=== PATIENT | female | born 1930 | race Caucasian/White ===

== ENCOUNTER 2018-11-13 07:56 | Inpatient (IN) ==
[2018-11-13 08:47] LABS: BASO# 0.05 X1000 (0.0-0.2); BASO% 0.3 % (0.0-0.8); EOS% 0.7 % (0.0-10.0); HEMATOCRIT 32.4 % (37.0-47.0); HEMOGLOBIN 11.1 g/dL (12.0-16.0); IMM GRAN# 0.16 X1000 (0.0-0.04); IMM GRAN% 1.1 % (0.0-0.5); LYMPH% 11.6 % (20.5-51.1); MCH 32.6 PG (27-31); MCHC 34.3 g/dL (33-37); MCV 95.3 FL (81-99); MONO# 0.79 X1000 (0.11-0.59); MONO% 5.4 % (1.7-9.3); MPV 8.8 FL (7.4-10.4); NEUT% 80.9 % (42.2-75.2); PLT 286 X1000 (130-400); RDW 14.8 % (11.5-14.5)
[2018-11-13 09:02] LABS: INR 1.17; PROTIME 15.5 Seconds (11.0-16.0)
[2018-11-13 09:03] LABS: PTT 29.6 Seconds (22.3-41.8)
[2018-11-13 09:08] LABS: ALBUMIN 4.3 g/dL (3.5-5.0); CALCIUM 9.1 mg/dL (8.8-10.2); CREATININE 1.2 mg/dL (0.5-0.9); POTASSIUM 4.5 mmol/L (3.5-5.1); TOTAL BILIRUBIN 0.4 mg/dL (0.20-1.00); TOTAL PROTEIN 6.7 g/dL (6.3-8.3)
--- NOTE | 2018-11-13 09:13 | Diag Imaging Result Doc PS360 ---
EXAM: CHEST-1 VIEW HISTORY: sespis protocol TECHNIQUE: PA and Lateral chest x-ray COMPARISON: 11/11/2018 FINDINGS: The cardiomediastinal silhouette is within normal limits. There is increasing vascular congestion and interstitial edema. Increasing bilateral pleural effusions. Stable scoliosis and bilateral shoulder arthroplasties. IMPRESSION: Increasing vascular congestion, interstitial edema, small effusions. Electronically signed by Maya Grfa 11/13/2018 9:10 AM
[2018-11-13 09:17] LABS: BILIRUBIN URINE NEGATIVE (NEGATIVE); BLOOD URINE NEGATIVE (NEGATIVE); CLARITY CLEAR (CLEAR); COLOR YELLOW; GLUCOSE URINE NEGATIVE (NEGATIVE); KETONE URINE NEGATIVE (NEGATIVE); LEUKOCYTES URINE NEGATIVE (NEGATIVE); NITRITE URINE NEGATIVE (NEGATIVE); PROTEIN URINE NEGATIVE (NEGATIVE); UROBILINOGEN URINE NORMAL
[2018-11-13 09:18] LABS: URINE SOURCE CLEAN CATCH; URINE WBC <10 /HPF (<10)
[2018-11-13] MEDS ORDERED: LASIX IV ONE (09:36)
[2018-11-13] MEDS ORDERED: ALBUTEROL NEB INH ONE (09:38)
--- NOTE | 2018-11-13 10:20 | EKG Report ---
Test Performed on : 11/13/2018 08:53:20 AM Test Reason : sespis protocol/weakness Blood Pressure : / mmHG Vent. Rate : 083 BPM Atrial Rate : 076 BPM P-R Int : 000 ms QRS Dur : 084 ms QT Int : 348 ms P-R-T Axes : 000 008 001 degrees QTc Int : 408 ms Atrial fibrillation. Septal infarct , age undetermined Abnormal ECG No previous ECGs available Unconfirmed Result
--- NOTE | 2018-11-13 10:51 | PROVIDER DOCUMENTATION ---
This chart was entered by Mame Padilla Scribe, acting as scribe for Woody Headley MD. HPI-General Adult - General Chief Complaint: Weakness Stated Complaint: RETURN/RECHECK Time Seen by Provider: 11/13/18 08:57 Source: patient Allergies/Adverse Reactions: Patient Allergies Allergy/AdvReac Type Severity Reaction Status Date / Time diphenhydramine HCl * Allergy Unknown Verified 11/13/18 09:09 [From Benadryl] midazolam HCl * [From Versed] Allergy ANAPHYLAXIS Verified 11/13/18 09:09 Penicillins Allergy ANAPHYLAXIS Verified 11/13/18 09:09 promethazine HCl * Allergy ANAPHYLAXIS Verified 11/13/18 09:09 [From Phenergan] Home Medications: Home Medication List Medication Instructions Recorded Confirmed Last Taken Type Fenofibrate 160 mg PO HS 05/29/14 11/13/18 02/10/18 17:30 History Lisinopril 20 mg PO QHS 05/29/14 11/13/18 02/09/18 History Omeprazole 40 mg PO DAILY 05/29/14 11/13/18 02/11/18 04:30 History Lorazepam 1 mg PO TID PRN #30 tablet 07/03/15 11/13/18 02/11/18 04:30 Rx Diltiazem HCl [Cardizem] 120 mg PO DAILY 10/09/16 11/13/18 02/11/18 04:30 History Fluticasone 50 Mcg Nasal [place] 2 puff INH QHS PRN 10/09/16 11/13/18 02/11/18 04:30 History [Flonase] Polyethylene Glycol 3350 [Miralax] 17 gm PO DAILY PRN 10/09/16 11/13/18 02/10/18 17:30 History Furosemide [Lasix] 40 mg PO DAILY 04/16/17 11/13/18 02/10/18 14:00 History LOVAstatin [Mevacor] 10 mg PO WSUPPER 02/05/18 11/13/18 02/10/18 History Ondansetron HCl [Zofran] 4 mg PO PRN PRN 02/05/18 11/13/18 Unknown History Potassium Chloride [Klor-Con 10] 10 meq PO DAILY 02/05/18 11/13/18 02/11/18 04:30 History Albuterol 2.5MG/Ipratrop 0.5MG 3 ml INH Q4H PRN PRN #40 neb 11/11/18 11/13/18 Unknown Rx [Duoneb] Clindamycin [Cleocin] 300 mg PO Q6HR #20 cap 11/11/18 11/13/18 Unknown Rx Prednisone 10 mg PO DIRECTED #9 tab 11/11/18 11/13/18 Unknown Rx Apixaban [Eliquis] 2.5 mg PO DAILY 11/13/18 11/13/18 Unknown History Aspirin 81 mg PO DAILY 11/13/18 11/13/18 Unknown History Oxycodone I.r. [Oxy Ir] 5 mg PO Q8H PRN PRN 11/13/18 11/13/18 Unknown History - History of Present Illness -Gen Adult Nature of Presenting Problems: 88 y/o female presents to ED with worsening productive cough, congestion, and SOB onset 2 days ago. Pt reports she has been seen in ED twice for same and is currently on antibiotics. Pt is alert and oriented. Location of Pain/Injury: reports: none Pain Radiation: reports: no radiation Quality of Pain: reports: none Severity: reports: mild Onset/Duration: reports: 2 days ago Timing: reports: still present Context/Activities at Onset: reports: none Modifying Factors: improves with: nothing Associated Symptoms: reports: cough (productive), sinus congestion/drainage, shortness of breath Similar Symptoms Previously?: Yes Recently seen or treated by another doctor?: Yes Review of Systems - Adult - REVIEW OF SYSTEMS - ADULT Constitutional: denies: chills, fever Eyes: reports: no symptoms reported Ears, Nose, Mouth & Throat: reports: sinus problem. denies: epistaxis Cardiovascular: denies: chest pain, palpitations Respiratory: reports: cough (productive), shortness of breath Gastrointestinal: denies: abdominal pain, diarrhea, nausea, vomiting Genitourinary: reports: no symptoms reported Musculoskeletal: denies: back pain, joint pain Integumentary: reports: no symptoms reported Neurological: denies: dizziness/vertigo, seizure Psychiatric: reports: no symptoms reported Endocrine: reports: no symptoms reported Hematologic/Lymphatic: reports: no symptoms reported Allergic/Immunologic: reports: no symptoms reported All Other Systems: Reviewed and Negative Past History - Adult - PAST MEDICAL HISTORY-ADULT Review of Records: reports: Old Records Reviewed, Nursing Assessment Review, M edications Reviewed Major Childhood Illnesses: reports: denies history Cardiovascular: reports: A-Fib, CHF, HTN, hyperlipidemia, ID Respiratory: reports: asthma, COPD Gastrointestinal: reports: GERD Obstetrical/Gynecological: reports: denies history Genitourinary: reports: denies history Musculoskeletal: reports: arthritis, chronic pain (pain pump), intervertebral disc disease Neurological: reports: denies history Psychiatric: reports: anxiety, other (panic attacks) Endocrine/Immune: reports: denies history Other Conditions: reports: denies history - PRIOR SURGERIES/PROCEDURES Surgical/Procedure History: reports: cholecystectomy, hysterectomy, orthopedic (extremity) (left shoulder replacement 09/2015), back/neck (back sx), other (nose sx, pain pump for chronic low back pain; bladder tack) - PRIOR HOSPITALIZATIONS Prior Hospitalizations: reports: for other non-related - IMMUNIZATION STATUS Childhood Immunizations: See Nurse Assessment Flu Vaccine: See Nurse Assessment - FAMILY HISTORY Family History: reviewed, not pertinent - SOCIAL HISTORY Smoking: non-smoker Substance Use: none/never Alcohol Use Frequency: never Living Situation: family Physical Exam-General - PHYSICAL EXAM-ADULT Initial Vital Signs Reviewed: Yes - CONSTITUTIONAL General Appearance: appears well, alert, no apparent distress - EYES Eyes: PERRL/EOMI, pink conjunctivae - HEAD, EARS, NOSE, MOUTH & THROAT HENMT: normocephalic/atraumatic, moist mucous membranes, normal ENT inspection - NECK Neck: non-tender, full range of motion - RESPIRATORY Respiratory: chest non-tender, rhonchi, increased rate - CARDIOVASCULAR Cardiovascular: tachycardia - GASTROINTESTINAL (ABDOMEN) Abdominal Exam: normal bowel sounds, non tender, soft - MUSCULOSKELETAL Back Exam: no CVA tenderness, no vertebral tenderness, kyphosis Extremity: normal range of motion, non-tender, swelling (chronic pitting edema of bilateral lower extremities), other (venous stasis dermatitis; bilateral low er extremities warm to touch) - SKIN Integumentary: normal color, warm/dry - NEUROLOGIC Neurologic: grossly normal - PSYCHIATRIC Psych/Mental Status: normal mood/affect, normal thought content, normal thought process, oriented x 3 Progress - PLAN OF CARE/RESULTS Progress/Plan/Lab Results: Vital Signs - 8 hr 11/13/18 08:03 Temperature 99.1 F Pulse Rate 99 H Respiratory Rate 24 Blood Pressure 177/083 O2 Sat by Pulse Oximetry 94 L Laboratory Results - last 24 hr 11/13/18 11/13/18 11/13/18 08:20 08:20 08:20 WBC 14.70 H RBC 3.40 L Hgb 11.1 L Hct 32.4 L MCV 95.3 MCH 32.6 H MCHC 34.3 RDW Std Deviation 14.8 H Plt Count 286 MPV 8.8 Immature Gran % (Auto) 1.1 H Neut % (Auto) 80.9 H Lymph % (Auto) 11.6 L [place] % (Auto) 5.4 Eos % (Auto) 0.7 Baso % (Auto) 0.3 Immature Gran # (Auto) 0.16 H Neut # (Auto) 11.90 H Lymph # (Auto) 1.70 [place] # (Auto) 0.79 H Eos # (Auto) 0.10 Baso # (Auto) 0.05 PT 15.5 INR 1.17 PTT (Actin FS) 29.6 Sodium 132 L Potassium 4.5 Chloride 99 Carbon Dioxide 22 L Anion Gap 11 BUN 24 H Creatinine 1.2 H Estimated GFR/1.73 m2 42 BUN/Creatinine Ratio 20 Glucose 92 Calculated Osmolality 268 Calcium 9.1 Total Bilirubin 0.40 AST 21 ALT 13 Alkaline Phosphatase 46 Creatine Kinase 64 Troponin T Total Protein 6.7 Albumin 4.3 Globulin 2.0 Albumin/Globulin Ratio 2.0 Plasma Lactate 11/13/18 11/13/18 08:20 08:20 WBC RBC Hgb Hct MCV MCH MCHC RDW Std Deviation Plt Count MPV Immature Gran % (Auto) Neut % (Auto) Lymph % (Auto) [place] % (Auto) Eos % (Auto) Baso % (Auto) Immature Gran # (Auto) Neut # (Auto) Lymph # (Auto) [place] # (Auto) Eos # (Auto) Baso # (Auto) PT INR PTT (Actin FS) Sodium Potassium Chloride Carbon Dioxide Anion Gap BUN Creatinine Estimated GFR/1.73 m2 BUN/Creatinine Ratio Glucose Calculated Osmolality Calcium Total Bilirubin AST ALT Alkaline Phosphatase Creatine Kinase Troponin T < 0.010 Total Protein Albumin Globulin Albumin/Globulin Ratio Plasma Lactate 1.4 Orders Category Date Time Status Cardiac Monitoring DIRECTED Care 11/13/18 08:11 Active IV Insertion ORDERED Care 11/13/18 08:11 Completed Notify MD of + Sepsis Screen NOW Care 11/13/18 08:11 Active CHEST-1 VIEW [RAD] Stat Exams 11/13/18 08:11 Completed BLOOD CULTURE [BLDCUL] Stat Lab 11/13/18 08:20 Ordered CBC WITH DIFF [HEME] Stat Lab 11/13/18 08:20 Completed CK PROFILE [SP CHEM] Stat Lab 11/13/18 08:20 Completed COMPREHENSIVE METABOLIC PANEL [CHEM] Stat Lab 11/13/18 08:20 Completed LACTATE, PLASMA [CHEM] Lab 11/13/18 08:20 Completed LACTATE, PLASMA [CHEM] Lab 11/13/18 11:15 Uncollected LACTATE, PLASMA [CHEM] Lab 11/13/18 14:15 Uncollected PROTIME WITH INR [COAG] Stat Lab 11/13/18 08:20 Completed PTT [COAG] Stat Lab 11/13/18 08:20 Completed TROPONIN T Stat Lab 11/13/18 08:[address] W/POSS RFLX CULT [URINALYSIS] Stat Lab 11/13/18 08:20 Received Oxygen Device Stat Oth 11/13/18 08:11 Active EKG [EKG] Stat Ther 11/13/18 08:14 Ordered Result Diagrams: 11/13/18 08:20 11/13/18 08:20 - EKG 1 Time of EKG reading by physician:: 08:53 EKG Read and Signed by:: Woody Headley EKG Interpretation (*Must complete 3 of following elements*): Abnormal Rate: 83 Rhythm: Afib [place]: normal QRS: other (septal infarct) RI Interval: normal ST Wave: normal - XRAY 1 XRAY Study: Chest Impression: Abnormal ([facility] [address], [address], [place] [address] Department of Imaging Patient: JUNIE GILLILAND OADM Date: 11/13/18#: [id number] : 1930DM Status: REG [facility]#: [id number] Age/Sex: 88/FRoom/Bed: Loc: P.ED Ordering Physician: Woody Headley MD Family Physician: Christiana Maria MD Reason for Procedure: sespis protocol Signed EXAM: CHEST-1 VIEW HISTORY: sespis protocol TECHNIQUE: PA and Lateral chest x-ray COMPARISON: 11/11/2018 FINDINGS: The cardiomediastinal silhouette is within normal limits. There is increasing vascular congestion and interstitial edema. Increasing bilateral pleural effusions. Stable scoliosis and bilateral shoulder arthroplasties. IMPRESSION: Increasing vascular congestion, interstitial edema, small effusions. Electronically signed by Maya Graf 11/13/2018 9:10 AM 11/13/18 0910 Interpreting Physician: Maya Graf MD Dictated Date/Time: 11/13/18 0908 cc: Woody Headley MD; Christiana Maria MD) - CONSULTS/PCP/HOSPITALIST Notification #1 *Consult/PCP/Hospitalist*: Dr. Pink Time Discussed: 10:51 Reason/Comments: Heart failure and COPD Consult Disposition: Admit Departure - Departure Date of Disposition Decision: 11/13/18 Time of Disposition Decision: 10:06 DIAGNOSIS: COPD (chronic obstructive pulmonary disease) Qualifiers: COPD type: unspecified COPD Qualified Code(s): J44.9 - Chronic obstructive pulmonary disease, unspecified Heart failure Qualifiers: Heart failure type: unspecified Heart failure chronicity: unspecified Qualified Code(s): I50.9 - Heart failure, unspecified Disposition: ADMITTED INPATIENT 09 Certified Medical Emergency: Emergent Condition: Stable Referrals and Follow-Ups: Christiana Maria MD [Primary Care Provider] - - Critical Care Note This patient required my direct & personal management of CC.: No Attestation - Physician/ MELLY Attestation Patient care was provided by Advanced Practice Provider:: No The physician spent face to face time with patient:: Yes Advanced Practice Provider documentation review:: Supervising physician onsite and consulted in the evaluation and care of this patient. The physician did have a face to face encounter with the patient. This chart was documented by the indicated scribe, (Valerie,Mame F, Scribe) and accurately reflects the services I performed and decisions made by me, Woody Headley MD, as attested by the provider's signature.
[2018-11-13] MEDS ORDERED: DUONEB (A & A) INH PRN (12:15)
[2018-11-13] MEDS ORDERED: FLONASE NAS PRN (12:15)
--- NOTE | 2018-11-13 13:30 | HISTORY AND PHYSICAL ---
PRIMARY CARE PHYSICIAN: Dr. Maria CHIEF COMPLAINT: Shortness of breath with productive cough. HISTORY OF PRESENT ILLNESS: Ms. Hawa Watson is an 88-year-old female with a medical history of chronic atrial fibrillation on Eliquis and Cardizem, congestive heart failure on Lasix with chronic lower extremity edema, also with chronic lower back pain with pain pump including morphine in it. She states that at least since Friday, where she presented on her on Friday, with antibiotics, nebulizers and prednisone, at that time they wanted to admit her, but she just did not want to stay, so they sent her home. This morning she woke up much more congested, started having productive cough with a very small amount of thick yellow phlegm, a little bit of dizziness and shortness of breath with it, much more weak, so is back. The x-ray is showing more of a pulmonary edema, congestive heart failure type of situation. Her ProBNP is elevated, but with the 99.1 temperature when she got here, the productive yellow phlegm, there could be an underlying pneumonia as well. According to the daughter who is at the bedside, she has never actually had a congestive heart failure exacerbation. In reviewing her ProBNP history, this is the highest it has been at 6574. Prior to that, the highest was 2550. So we will send her for a CT of the chest to evaluate if there is some underlying pneumonia as well. She does have an elevated white blood cell count but could be inflammatory and also a result of having steroids. She is tolerating 2 L of nasal cannula at this time. PAST MEDICAL HISTORY: 1. Atrial fibrillation on Eliquis and Cardizem. 2. Systolic congestive heart failure with chronic lower extremity edema on Lasix. 3. Hypertension. 4. Hyperlipidemia. 5. Coronary artery disease with myocardial infarction around 3 or 4 years ago. No intervention on that. 6. 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 Denies ever having any back surgeries or neck surgeries, though. 7. Chronic arthritis. 8. Pulmonary emboli in 2013. 9. 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 10.GERD. PAST SURGICAL HISTORY: 1. Cholecystectomy. 2. Hysterectomy. 3. Left shoulder replacement in 2015. 4. Right shoulder replacement in 2018. 5. Bilateral cataracts. 6. Pain pump with morphine placed. SOCIAL HISTORY: Denies tobacco, alcohol or illicit drug use. She uses a walker to get around. She lives at home with her daughter. FAMILY HISTORY: Mother had stroke and high blood pressure. Father had diabetes type 2 and myocardial infarction. ALLERGIES: Versed causes agitation. Penicillin causes hives and swelling. Benadryl causes agitation. Phenergan causes agitation. HOME MEDICATIONS: 1. Fluticasone 2 puffs inhaled nasally at night. 2. Lisinopril 20 mg p.o. nightly. 3. Aspirin 81 mg p.o. daily. 4. Cardizem 120 mg p.o. daily. 5. Eliquis 2.5 mg p.o. daily. 6. Fenofibrate 160 mg p.o. nightly. 7. Potassium 10 mEq p.o. daily. 8. Lasix 40 mg p.o. daily. 9. Lovastatin 10 mg p.o. at night. 10.MiraLAX 17 g p.o. daily. 11.Omeprazole 40 mg p.o. daily. 12.Oxycodone IR 5 mg p.o. every 8 hours p.r.n. 13.Zofran 4 mg p.o. every 4 hours p.r.n. 14.Albuterol and Atrovent nebulizers every 4 hours. 15.Clindamycin 300 mg p.o. every 6 hours. 16.Ativan 1 mg p.o. t.i.d. p.r.n. 17.Prednisone Dosepak. REVIEW OF SYSTEMS: A 14-point review of systems is complete, and all were negative except for those mentioned in the above HPI. PHYSICAL EXAMINATION: VITAL SIGNS: Temperature is 98.6, heart rate 83, respiratory rate 22, blood pressure 164/69, O2 saturation 99% on 2 L nasal cannula. GENERAL: Ms. Hawa Watson is an 88-year-old female. She is in no acute distress. She is able to answer questions appropriately. HEENT: Atraumatic and normocephalic. Pupils are equal, round and reactive to light. Extraocular movements were intact. Mucous membranes are dry. NECK: Trachea midline. CARDIOVASCULAR: Irregularly irregular rate and rhythm, controlled rate and rhythm. No rubs, gallops or murmurs. She has 1+ lower extremity edema, plus 2 dorsalis and radial pulses. Negative JVD or carotid bruits. PULMONARY: Clear to auscultation. Coarse through the left side mostly. Decreased in the bases with some very fine crackles. Tolerating 2 L nasal cannula. No accessory muscle use or work of breathing noted. She does have a coarse cough. GASTROINTESTINAL: Soft, nontender and nondistended. Positive bowel sounds x4. EXTREMITIES: Moves all extremities equally, decreased range of motion. NEUROLOGICAL: Alert and oriented x3. Follows commands. Sensory is intact. SKIN: Warm, dry and intact. DIAGNOSTIC DATA: White blood cells are 14,000, hemoglobin 11, hematocrit 32, platelet count 286. INR is 1.17. PTT is 29.6. Sodium is 132, potassium 4.5, BUN is 24, creatinine 1.2, glucose 92, calcium 9.1, bilirubin 0.40, AST is 21, ALT is 13. CK is 64. Troponin less than 0.01. ProBNP is 6574. Albumin is 4.3. Serum lactate is 1.4. Urinalysis negative. IMAGING: Chest x-ray with increased vascular congestion, interstitial edema, small effusions. EKG with atrial fibrillation, rate of 83, QTC of 408. ASSESSMENT AND PLAN: 1. Acute on chronic systolic congestive heart failure. Last echocardiogram was 06/27/2015 that was performed here, and EF was 70% to 75%. It did have pulmonary pressure around 35 mmHg. We will get a new echocardiogram. She does have swelling in the lower extremities. She is going to be on Lasix IV q.12 hours. 2. Hypoxemic respiratory failure requiring 2 L nasal cannula. We will do nebulizers for her. 3. Leukocytosis. History of frequent UTIs with several different microbes, but she has a clear urinalysis right now. Likely, we are concerned that there is an underlying pneumonia, so we are getting a CT of the chest. She does have a little bit of a yellow phlegm that she started coughing up today, and we will get a culture of that. We will also start her on Levaquin. 4. Atrial fibrillation. Currently rate controlled. We will continue Cardizem, Eliquis and aspirin. 5. Hyperlipidemia. Continue statin and fenofibrate. 6. Gastroesophageal reflux disease. Continue with omeprazole. 7. Chronic pain syndrome. Has a morphine pain pump for her back and p.r.n. oxycodone. 8. Hypertension. Continue lisinopril. 9. History of pulmonary emboli in 2014 and bilateral DVTs in 2018. She is on Eliquis and aspirin. Dictated by YASH Rios for Junior Pink MD cc: YASH Rios MD
[2018-11-13] MEDS: LEVAQUIN 500 MG/D5W 500 MG/100 ML IVPB IV SCH (13:35)
[2018-11-13] MEDS: ATIVAN PO PRN ×2 (13:52→20:25)
[2018-11-13] MEDS: OXY IR PO PRN ×2 (13:52→22:02)
[2018-11-13] MEDS: ATROVENT NEB INH SCH ×2 (16:25→21:44)
[2018-11-13] MEDS: XOPENEX NEB INH SCH ×2 (16:27→21:44)
--- NOTE | 2018-11-13 16:56 | ECHO REPORT ---
ORDER DATE: 11/13/2018 INDICATION: Shortness of breath, CHF. FINDINGS: 1. The right atrium is severely enlarged. 2. There is mild, possibly moderate tricuspid regurgitation. RV systolic pressure of 53. 3. Normal RV size and systolic function. 4. No significant pulmonic insufficiency. 5. Severe left atrial enlargement with a volume index of 57. 6. No mitral valve prolapse. Mild mitral annular calcification. Mild mitral regurgitation noted. 7. Normal LV size, end-diastolic dimension of 3.8. Normal wall thicknesses with a posterior and interventricular septal wall thickness of 0.9 cm each. Hyperdynamic LV systolic function. The estimated ejection fraction is greater than 70%. Notably the heart rate appeared to be in the 120s to 130s for the majority of this study. It appears consistent with atrial fibrillation. Notably there was an increased left ventricular outflow tract gradient on Valsalva with a peak of 61 mmHg. No clear evidence of systolic anterior motion of the mitral leaflet was identified. 8. Aortic valve opens well. No clear evidence of stenosis or insufficiency. 9. Aorta appears normal in visualized segments. 10. No pericardial effusion identified. cc: MD Sangeetha De Santiago CRNP
--- NOTE | 2018-11-13 16:58 | Diag Imaging Result Doc PS360 ---
EXAM: CT THORAX W/CONTRAST HISTORY: pneumonia TECHNIQUE: Images were obtained from the lung apices through bases following IV contrast as per standard protocol. COMPARISON: None. FINDINGS: There is streak artifact from bilateral shoulder arthroplasties. There is atherosclerotic calcification within the aorta and coronary arteries. Mitral annulus calcification and dilatation of the left atrium. There are calcified hilar and mediastinal lymph nodes consistent prior granulomatous. There is no evidence for aortic aneurysm or dissection. There are bilateral pleural effusions right greater than left. There is peribronchial thickening and alveolar infiltrates at both lung bases right greater than left consistent with pneumonia and/or or atelectasis. There is linear atelectasis or scarring right middle lobe. Images of the abdomen reveal dense atherosclerotic calcified patient. There is right renal atrophy. There is a large, approximately 5 cm, left renal cyst. There are cholecystectomy clips. There is a spinal stimulator device. There is a severe scoliosis IMPRESSION: 1.Bibasilar alveolar infiltrates and effusions right greater than left consistent with pneumonia and/or atelectasis. 2.Marked scoliosis with spinal stimulator device. This exam was performed using automated exposure control, adjustment of mA or kV according to patient size, and/or use of iterative reconstruction technique. Electronically signed by Maya Graf 11/13/2018 4:55 PM
[2018-11-13] MEDS: MEVACOR PO SCH (17:05)
[2018-11-13] MEDS: CARDIZEM 125 MG/D5W 125 MG/125 ML IVPB IV SCH ×2 (17:45→19:50)
--- NOTE | 2018-11-13 18:29 | EKG Report ---
Test Performed on : 11/13/2018 5:12:32 PM Test Reason : afib Blood Pressure : / mmHG Vent. Rate : 135 BPM Atrial Rate : 122 BPM P-R Int : 000 ms QRS Dur : 082 ms QT Int : 308 ms P-R-T Axes : 000 006 -33 degrees QTc Int : 462 ms Atrial fibrillation. with rapid ventricular response. Septal infarct (cited on or before 25-SEP-2017) Abnormal ECG When compared with ECG of 13-NOV-2018 08:53, (Unconfirmed) Vent. rate has increased BY [address] now depressed in Inferior leads ST now depressed in Anterolateral leads Confirmed by Woody Headley MD ([id number]) on 11/19/2018 2:17:06 AM
[2018-11-13] MEDS ORDERED: OFIRMEV 1000 MG/ISOTONIC SOLN 1,000 MG/100 ML BOTTLE IV ONE (19:00)
[2018-11-13] MEDS: ELIQUIS PO SCH (20:25)
[2018-11-13] MEDS: TRICOR PO SCH (20:25)
[2018-11-13] MEDS: TYLENOL PO PRN (20:28)
--- NOTE | 2018-11-13 20:36 | PROGRESS NOTE ---
DATE: 11/13/2018 SUBJECTIVE: The patient has no major complaints. OBJECTIVE: Vital Signs: Blood pressure is 172/78, heart rate of 99, respiratory rate 22, temperature 98.7, 95% on 2 L. Exam: She has audible crackles and she is struggling to breathe. She clinically looks like she has heart failure. She was seen in the ER a couple of days ago and she was treated for bronchitis, pneumonia, but now I feel clinically she has heart failure. I do not have any cardiac testing to secure it one way or another. Her echo in 2014 was normal. ASSESSMENT: We will admit her for: 1. Congestive heart failure exacerbation. Continue diuretics. Get an echo and follow clinically. 2. Bronchitis with possible pneumonia. We will get a CT scan and get a procalcitonin level and follow closely. 3. She is discussing with her family about her code status. At this point she is a full code. cc: Junior Pink MD
[2018-11-13] MEDS ORDERED: PRINIVIL PO SCH (21:00)
[2018-11-13] MEDS: LASIX IV SCH (22:02)
[2018-11-14] MEDS: ATIVAN PO PRN ×3 (05:47→20:04)
[2018-11-14] MEDS: PRILOSEC PO SCH (06:11)
[2018-11-14 06:19] LABS: BASO# 0.05 X1000 (0.0-0.2); BASO% 0.6 % (0.0-0.8); EOS# 0.13 X1000 (0.0-0.7); EOS% 1.6 % (0.0-10.0); HEMOGLOBIN 11.3 g/dL (12.0-16.0); IMM GRAN# 0.13 X1000 (0.0-0.04); IMM GRAN% 1.6 % (0.0-0.5); LYMPH# 1.56 X1000 (1.2-3.4); LYMPH% 18.8 % (20.5-51.1); MCH 33.1 PG (27-31); MCHC 34.2 g/dL (33-37); MCV 96.8 FL (81-99); MONO# 0.76 X1000 (0.11-0.59); MONO% 9.2 % (1.7-9.3); MPV 8.7 FL (7.4-10.4); NEUT# 5.67 X1000 (1.4-6.5); NEUT% 68.2 % (42.2-75.2); PLT 234 X1000 (130-400); RBC 3.41 XMIL (4.2-5.4); RDW 15.1 % (11.5-14.5)
[2018-11-14 06:56] LABS: ALBUMIN 3.5 g/dL (3.5-5.0); CALCIUM 8.6 mg/dL (8.8-10.2); CREATININE 1.2 mg/dL (0.5-0.9); MAGNESIUM 1.8 mg/dL (1.5-2.7); POTASSIUM 4.2 mmol/L (3.5-5.1); TOTAL BILIRUBIN 0.5 mg/dL (0.20-1.00); TOTAL PROTEIN 6.3 g/dL (6.3-8.3)
[2018-11-14] MEDS: ELIQUIS PO SCH ×2 (08:11→20:04)
[2018-11-14] MEDS: ASPIRIN PO SCH (08:11)
[2018-11-14] MEDS ORDERED: CARDIZEM CD PO SCH (09:00)
[2018-11-14] MEDS ORDERED: ELIQUIS PO SCH (09:00)
[2018-11-14] MEDS: LASIX IV SCH ×2 (09:27→20:02)
[2018-11-14] MEDS: ATROVENT NEB INH SCH ×3 (09:41→21:04)
[2018-11-14] MEDS: XOPENEX NEB INH SCH ×3 (09:41→21:03)
[2018-11-14] MEDS: OXY IR PO PRN (11:01)
[2018-11-14] MEDS: LEVAQUIN 500 MG/D5W 500 MG/100 ML IVPB IV SCH (11:29)
[2018-11-14] MEDS ORDERED: MAGNESIUM SULFATE 1 GM/D5W 1 GM/100 ML IVPB IV ONE (12:55)
[2018-11-14] MEDS: CARDIZEM PO SCH ×2 (13:16→18:29)
[2018-11-14] MEDS: ZANAFLEX PO PRN ×2 (13:16→21:15)
[2018-11-14] MEDS: MEVACOR PO SCH (16:00)
--- NOTE | 2018-11-14 16:39 | PROGRESS NOTE ---
DATE: 11/14/2018 SUBJECTIVE: She is doing well. Breathing is much better. She does not have as much work of breathing. OBJECTIVE: Blood pressure is 102/52, heart rate 86, respiratory 17, temperature 98.8 degrees, 95% on 2 L.Cardiovascular: Regular rate and rhythm. Pulmonary: Bilateral breath sounds with rhonchi and rales at the bases. GI: Soft, nontender, nondistended. Bowel sounds are positive. LABORATORY DATA: Her white count is 8, hemoglobin and hematocrit 11, 33, platelets 234,000. Creatinine is 1.2, potassium 4.2, mag is 1.8. PROBLEM LIST: 1. Congestive heart failure exacerbation presumably diastolic. I think the heart failure is ejection fraction 70%. 2. Likely pneumonia lower lobe. We will continue empiric antibiotics. She is currently on Levaquin. 3. Atrial fibrillation with rapid ventricular response. She went into that yesterday evening requiring intravenous Cardizem which we did intravenous and she has slowed down but she is not cardioverted. She meets criteria for anticoagulation. She is 88, her creatinine is 1.2 so I am just going to do the 2.5. We will attempt to get a Cardiology consult, keep her potassium and magnesium above 4 and 2 respectively. 4. Gastroesophageal reflux disease. Will continue PPI and follow. DISPOSITION: The patient is stable. Reportedly she is on Eliquis already but she is only on 2.5 daily. I am going to continue that and we will follow. cc: Junior Pink MD
--- NOTE | 2018-11-14 19:29 | CONSULTATION ---
DATE OF CONSULTATION: 11/14/2018 IMPRESSION: 1. Dyspnea symptoms probably multifactorial related to acute on chronic congestive heart failure with preserved left ventricular ejection fraction and chronic pulmonary disease with exacerbation. 2. Chronic atrial fibrillation. 3. Chronic pulmonary disease. 4. Hypertensive cardiovascular disease. Echocardiography demonstrates relatively hyperdynamic left ventricle and moderate pulmonary hypertension. 5. Hyperlipidemia. 6. 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 Patient has chronic pain pump implanted. 7. History of deep vein thrombosis and pulmonary emboli. RECOMMENDATIONS: 1. Agree with efforts to diurese. 2. Continue Eliquis 2.5 mg p.o. b.i.d. as you are doing. 3. Conservative cardiovascular management overall. HISTORY: This 88-year-old white female with past history of chronic congestive heart failure with preserved left ventricular ejection fraction, chronic pulmonary disease, hypertension, hyperlipidemia, chronic atrial fibrillation, previous DVT and pulmonary emboli, and chronic pain syndrome related to chronic back disorder was admitted to the emergency room with primary complaint of shortness of breath and cough. She was found to have a have evidence of acute on chronic congestive heart failure. She also had atrial fibrillation with increased ventricular rate response requiring transient use of intravenous Cardizem. For these reasons, Cardiology was consulted. She reports developing shortness of breath and cough with modest sputum production. She adds that she just cannot get the sputum up. There has been no chest pain. She has had some tendency for orthopnea as well as some peripheral swelling. She has been on rate control with diltiazem and long-term anticoagulation with Eliquis for her chronic atrial fibrillation. There has been a tendency for infrequent falls the last being probably a year ago but she states that she has been fairly careful and that she currently lives with her daughter and that her living arrangements have been made handicap accessible. PAST MEDICAL HISTORY: 1. Chronic congestive heart failure with preserved left ventricular ejection fraction. 2. Moderate pulmonary hypertension. 3. Chronic atrial fibrillation. 4. Chronic pulmonary disease. The patient seems to have history of chronic recurrent bronchitis. 5. Hypertension. 6. Hyperlipidemia. 7. Chronic back disorder with chronic back pain. Patient has a implanted pain pump. 8. Previous pulmonary emboli and previous deep vein thrombosis on separate occasions. 9. Gastroesophageal reflux disease. PAST SURGICAL HISTORY: Includes cholecystectomy, hysterectomy, left shoulder replacement 2015, right shoulder replacement 2018, bilateral cataracts and implanted pain pump. ALLERGIES: She is allergic or intolerant to diphenhydramine, midazolam, penicillin among other medications. MEDICATIONS PRIOR TO ADMISSION: As listed. SOCIAL HISTORY: She has never smoked. She is a . She currently lives with her daughter. She has some difficulty with gait and uses a walker to get around her home which is handicap accessible. 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 She is not aware of any asbestos exposure. FAMILY HISTORY: Negative for premature coronary disease and positive for stroke as well as hypertension and type 2 diabetes mellitus. There is a family history of coronary disease with older age clinical onset. REVIEW OF SYSTEMS: Pulmonary: Noteworthy for cough with modest sputum production and dyspnea as well as orthopnea. Gastrointestinal: Negative. Constitutional: Negative. Remainder review of systems negative/noncontributory with 14 total systems reviewed. PHYSICAL EXAMINATION: General: Reveals a thin, elderly white female in no distress on supplemental oxygen per nasal cannula. Vital signs: Blood pressure 142/61, heart rate 86 and irregular with ECG monitor showing atrial fibrillation. Oxygen saturation 96 to 97 percent on nasal cannula oxygen at 2 L/minute. Neck: Jugular venous distention cannot be appreciated. Chest: Auscultation chest reveals few bibasilar crackles more so on the right base posteriorly. Respiratory crackles are somewhat coarse in nature. Cardiac Exam: Reveals an irregular rate and rhythm without appreciable murmur or gallop. Abdomen: Soft. Bowel sounds are normal. Extremities: Demonstrate trace edema. Neurologic: Reveals her to be alert and fully oriented. Speech is fluent. She moves all 4 extremities equally well. Skin: Warm, dry. Psychiatric: Reveals her mood to be appropriate. DATA: Twelve lead EKG demonstrates atrial fibrillation. LABORATORY DATA: Includes white blood cell count 8.3, hematocrit 33.0, hemoglobin 11.3, platelet count 234,000. Sodium 136, potassium 4.2, chloride 98, carbon dioxide 24, BUN 20, creatinine 1.2. Glucose 80. Troponin T less 0.01. Pro B-natriuretic peptide level 6574. Albumin 3.5, TSH 5.09, free T4 1.12. cc: Gasper Patterson MD [facility]
[2018-11-14] MEDS: TYLENOL PO PRN (20:04)
[2018-11-14] MEDS: TRICOR PO SCH (20:06)
[2018-11-14] MEDS ORDERED: PRINIVIL PO SCH (21:00)
[2018-11-14] MEDS: QUININE SULFATE PO SCH (21:49)
[2018-11-15] MEDS: PRILOSEC PO SCH (06:11)
[2018-11-15] MEDS: CARDIZEM PO SCH ×4 (06:11→21:20)
[2018-11-15] MEDS: ATIVAN PO PRN ×3 (06:11→21:19)
[2018-11-15 06:16] LABS: BASO# 0.04 X1000 (0.0-0.2); BASO% 0.4 % (0.0-0.8); EOS# 0.18 X1000 (0.0-0.7); HEMATOCRIT 33.1 % (37.0-47.0); HEMOGLOBIN 11.1 g/dL (12.0-16.0); IMM GRAN# 0.12 X1000 (0.0-0.04); IMM GRAN% 1.3 % (0.0-0.5); LYMPH# 1.46 X1000 (1.2-3.4); LYMPH% 15.8 % (20.5-51.1); MCHC 33.5 g/dL (33-37); MCV 95.4 FL (81-99); MONO% 10.8 % (1.7-9.3); MPV 9.2 FL (7.4-10.4); NEUT# 6.43 X1000 (1.4-6.5); NEUT% 69.7 % (42.2-75.2); PLT 267 X1000 (130-400); RBC 3.47 XMIL (4.2-5.4); RDW 14.8 % (11.5-14.5); WBC 9.23 X1000 (4.8-10.8)
[2018-11-15 06:35] LABS: CALCIUM 8.6 mg/dL (8.8-10.2); CREATININE 1.4 mg/dL (0.5-0.9); POTASSIUM 3.7 mmol/L (3.5-5.1)
--- NOTE | 2018-11-15 07:59 | Diag Imaging Result Doc PS360 ---
EXAM: CHEST-PORTABLE - 11/15/2018 HISTORY: dyspnea TECHNIQUE: Portable chest COMPARISON: 11/13/2018 FINDINGS: Heart size appears normal. There are apparent COPD changes. There is been mild decrease in basilar opacities. There is a small right pleural effusion which is decreased. There is no pneumothorax identified. IMPRESSION: Mild decrease in basilar opacities. Electronically signed by Tai Marquez 11/15/2018 7:57 AM
[2018-11-15] MEDS: OXY IR PO PRN ×2 (08:00→16:02)
[2018-11-15] MEDS: ELIQUIS PO SCH ×2 (08:01→21:19)
[2018-11-15] MEDS: ASPIRIN PO SCH (08:01)
[2018-11-15] MEDS: ATROVENT NEB INH SCH ×3 (09:39→21:45)
[2018-11-15] MEDS: XOPENEX NEB INH SCH ×3 (09:39→21:45)
[2018-11-15] MEDS: MIRALAX PO PRN (11:11)
[2018-11-15] MEDS: LEVAQUIN 500 MG/D5W 500 MG/100 ML IVPB IV SCH (11:33)
[2018-11-15] MEDS ORDERED: NS 1,000 ML IV ONE (11:41)
[2018-11-15] MEDS: LASIX IV SCH ×2 (12:44→21:59)
--- NOTE | 2018-11-15 12:49 | PROGRESS NOTE ---
DATE: 11/15/2018 SUBJECTIVE: Patient looks well. Overnight, she did have some intermittent hypotension, but now she is a bit on the hypertensive side so she has come up a bit. OBJECTIVE: Blood pressure 119/62, heart rate 80, respiratory rate 17, temperature 98.9 degrees. The last blood pressure I have was 180/84. She was in the 140s before that. She is still in atrial fibrillation, but asymptomatic. PROBLEM LIST: 1. Atrial fibrillation with rapid ventricular response. She is stable on Cardizem. She is on Eliquis. Dr. Patterson has evaluated her. I appreciate his input. We are going to continue Cardizem. She seems to be doing okay. 2. Congestive heart failure, presumably diastolic dysfunction. I am going to decrease her Lasix because she was intermittently hypotensive and then her creatinine bumped up a little bit and we will monitor her renal function. 3. Left lower lobe pneumonia. She is on Levaquin. We will continue antibiotics for the time being. She seems to be improving. Chest x-ray is improving. She is on pulmonary toilet. 4. Gastroesophageal reflux disease. She is on PPI. 5. Some intermittent hematuria. May be related to her diuretic. We will keep an eye on that. It is not gross hematuria at this point, so I am not going to stop her Eliquis for the time being, but I think we could probably hold her aspirin and make a decision about starting that long-term or not or just using Eliquis alone. cc: Junior Pink MD
[2018-11-15] MEDS ORDERED: CARDIZEM PO SCH (13:00)
[2018-11-15] MEDS: MEVACOR PO SCH (16:03)
[2018-11-15] MEDS: TRICOR PO SCH (21:19)
[2018-11-15] MEDS: QUININE SULFATE PO SCH (21:30)
[2018-11-16] MEDS: CARDIZEM PO SCH ×4 (03:18→21:41)
[2018-11-16] MEDS: PRILOSEC PO SCH (06:06)
[2018-11-16 06:57] LABS: BASO# 0.02 X1000 (0.0-0.2); BASO% 0.2 % (0.0-0.8); EOS# 0.15 X1000 (0.0-0.7); EOS% 1.5 % (0.0-10.0); HEMATOCRIT 33.1 % (37.0-47.0); HEMOGLOBIN 11.2 g/dL (12.0-16.0); IMM GRAN# 0.11 X1000 (0.0-0.04); IMM GRAN% 1.1 % (0.0-0.5); LYMPH# 1.58 X1000 (1.2-3.4); LYMPH% 15.6 % (20.5-51.1); MCHC 33.8 g/dL (33-37); MCV 94.6 FL (81-99); MONO# 0.86 X1000 (0.11-0.59); MONO% 8.5 % (1.7-9.3); MPV 8.9 FL (7.4-10.4); NEUT# 7.38 X1000 (1.4-6.5); NEUT% 73.1 % (42.2-75.2); PLT 299 X1000 (130-400); RDW 14.4 % (11.5-14.5)
[2018-11-16 07:14] LABS: CALCIUM 8.3 mg/dL (8.8-10.2); CREATININE 1.3 mg/dL (0.5-0.9)
[2018-11-16] MEDS: OXY IR PO PRN ×2 (08:00→16:32)
[2018-11-16] MEDS: ELIQUIS PO SCH ×2 (08:00→21:41)
[2018-11-16] MEDS: ATIVAN PO PRN ×2 (08:01→16:32)
[2018-11-16] MEDS: LASIX IV SCH (08:01)
[2018-11-16] MEDS: LEVAQUIN PO SCH (08:01)
[2018-11-16 09:43] LABS: ANISOCYTOSIS 2+; BANDS 1 % (0-1); LYMPHS 13 % (21-51); MONO 6 % (1-9); POIKILOCYTOSIS OCCASIONAL; SEGS 80 % (42-75)
[2018-11-16] MEDS: ATROVENT NEB INH SCH ×3 (11:00→21:52)
[2018-11-16] MEDS: XOPENEX NEB INH SCH ×3 (11:00→21:53)
[2018-11-16] MEDS: MEVACOR PO SCH (16:19)
[2018-11-16] MEDS: MIRALAX PO PRN (16:20)
[2018-11-16] MEDS: ZANAFLEX PO PRN (21:41)
[2018-11-16] MEDS: QUININE SULFATE PO SCH (21:41)
[2018-11-16] MEDS: TRICOR PO SCH (21:41)
[2018-11-17] MEDS: CARDIZEM PO SCH ×4 (02:03→21:32)
[2018-11-17] MEDS: ATIVAN PO PRN ×3 (02:04→21:54)
[2018-11-17] MEDS: OXY IR PO PRN ×3 (02:04→21:54)
--- NOTE | 2018-11-17 05:01 | PROGRESS NOTE ---
DATE: 11/16/2018 SUBJECTIVE: The patient apparently had some issues with hypertension. Blood pressures currently are a little bit better. Denies any new complaints. She still has not really been out of bed. Still very tired and fatigued. OBJECTIVE: Vital Signs: Temperature 97.7, pulse 107, respiratory 18, and BP 171/86. General: Patient is awake and alert. She is very pleasant. Her daughter is also in the room. HEENT: Normocephalic. Neck: Supple. CV: Tachycardia. No murmurs. Chest: Clear and nonlabored. Abdomen: Soft. Nondistended. Extremities: Moves all extremities. ASSESSMENT: 1. Hypertension. 2. Pulmonary hypertension, moderate. 3. Chronic back pain currently with a pain pump. 4. Atrial fibrillation with rapid ventricular response. She is on Cardizem. Heart rates are better controlled, although currently this morning they are elevated at 107. 5. Congestive heart failure with diastolic dysfunction. 6. Left lower lobe pneumonia on Levaquin. PLAN: Overall, patient has improved. We will continue in the hospital for the next day or 2 and watch her heart rate. We will attempt physical therapy. Expect that she will need rehab. If possible, hopefully can transition to rehab in the next 2 or 3 days. cc: Carlyle Cantu MD
[2018-11-17] MEDS: PRILOSEC PO SCH (06:10)
[2018-11-17] MEDS: MIRALAX PO PRN (07:57)
[2018-11-17] MEDS: ELIQUIS PO SCH ×2 (08:00→21:31)
[2018-11-17] MEDS: LASIX IV SCH (08:00)
[2018-11-17] MEDS: LEVAQUIN PO SCH (08:00)
[2018-11-17] MEDS: XOPENEX NEB INH SCH ×3 (09:21→21:06)
[2018-11-17] MEDS: ATROVENT NEB INH SCH ×3 (09:21→21:05)
[2018-11-17] MEDS: MEVACOR PO SCH (17:52)
[2018-11-17] MEDS: TRICOR PO SCH (21:32)
[2018-11-17] MEDS: QUININE SULFATE PO SCH (21:32)
--- NOTE | 2018-11-17 23:39 | PROGRESS NOTE ---
DATE: 11/17/2018 SUBJECTIVE: The patient notes that she is feeling better; however, she has not really been out of bed. She is still fatigued, although feels as though her strength is improving. Denies coughing currently. Denies any palpitations. OBJECTIVE: Temperature 97.8 degrees, pulse 89 to 127, respiratory 18, BP 98/68.General: The patient is in no distress. Very pleasant to talk with. HEENT: Normocephalic. Neck supple. CV: Irregular rhythm, currently rate controlled. Chest clear and nonlabored. No wheezing. Abdomen soft, nondistended. Extremities: Moves all extremities. ASSESSMENT: 1. Atrial fibrillation. Currently rate-controlled, although did have several episodes yesterday where heart rate was elevated. 2. Congestive heart failure, diastolic dysfunction. 3. Left lower lobe pneumonia. 4. Chronic reflux. 5. Hypertension. 6. Pulmonary hypertension. 7. Chronic back pain. PLAN: We will start changing the patient to p.o. antibiotics and p.o. Lasix. Hopefully she can transition to rehab over the next day or 2. She will need to have her pain pump refilled as well. cc: Carlyle Cantu MD
[2018-11-18] MEDS: CARDIZEM PO SCH ×4 (02:16→20:09)
[2018-11-18] MEDS: PRILOSEC PO SCH (06:27)
[2018-11-18] MEDS: LASIX PO SCH (08:04)
[2018-11-18] MEDS: LEVAQUIN PO SCH (08:04)
[2018-11-18] MEDS: OXY IR PO PRN ×2 (08:05→16:16)
[2018-11-18] MEDS: ELIQUIS PO SCH ×2 (08:05→20:10)
[2018-11-18] MEDS: ATIVAN PO PRN ×2 (08:05→16:15)
[2018-11-18] MEDS: ATROVENT NEB INH SCH ×3 (09:00→21:00)
[2018-11-18] MEDS: XOPENEX NEB INH SCH ×3 (09:02→21:00)
--- NOTE | 2018-11-18 10:06 | DISCHARGE SUMMARY ---
ADMISSION DATE: 11/13/2018 DISCHARGE DATE: 11/18/2018 DIAGNOSES: 1. Acute on chronic systolic congestive heart failure, resolved. 2. Hypoxemic respiratory failure, resolved. 3. Leukocytosis resolved. 4. Left lower lobe pneumonia. 5. Atrial fibrillation, rate controlled. 6. Hypertension. 7. Pulmonary hypertension. 8. Chronic back pain with a morphine pain pump. CONSULTATION: Dr. Gasper Patterson, Cardiology. DIAGNOSTICS: 1. 11/13/2018: Chest x-ray revealed increasing vascular congestion, interstitial edema and small effusions. 2. 11/13/2018: CT of the chest revealed bibasilar alveolar infiltrates and effusions with right greater than left, consistent with pneumonia and/or atelectasis. Marked scoliosis with spinal stimulator device. 3. Echocardiogram reveals relatively hyperdynamic left ventricle with moderate pulmonary hypertension, having an EF of 70%. 4. 11/15/2018: Chest x-ray revealed mild decrease in basilar opacities. MICROBIOLOGY: 1. Blood cultures x2 revealed no growth after 48 hours. 2. Sputum culture revealed normal malathi. HOSPITAL COURSE: Ms Watson presented with shortness of breath and a productive cough. She was found to have pneumonia, for which she was treated with Levaquin and doxycycline. Thankfully, she has improved. She initially required 2 L nasal cannula. Oxygen was discontinued on the - , and she has maintained oxygen saturations of 94 to 98 percent on room air. She denies any shortness of breath or increased work of breathing. She does have chronic atrial fibrillation. She did have a few episodes where her rate increased, although it has primarily been in the 80s to 90s with max heart rate being 100 to 110 at short intervals. She is fatigued when getting out of the bed and doing any activity, although the patient has been in bed for quite some time. She does state that over the last 2 to 3 days she feels that her strength is improving. She was evaluated by Cardiology, who agreed with diuresis. Recommend conservative cardiovascular management overall, and did agree with continuing her Eliquis. She does have an implanted pain pump that is managed by Dr. Angel in [place] at [facility]. PHYSICAL EXAMINATION: Discharge vital signs: Blood pressure is 139/54, heart rate of 84, respirations 16, temperature 97.9 degrees oral with room air saturations up 92 to 95 percent. Cardiovascular: Irregularly irregular rate and rhythm. S1 and S2 are appreciated. She has no lower extremity edema. Calves are nontender bilateral with peripheral pulses palpable x4 extremities. Pulmonary: Breath sounds are clear with no increased work of breathing noted. Chest rises and falls symmetrically with respiration. Gastrointestinal: Abdomen is soft, nontender, nondistended with bowel sounds in all 4 quadrants. Neurologic: She is alert and oriented. Skin: Warm and dry. DISCHARGE MEDICATIONS: 1. Potassium chloride 10 mEq p.o. daily. 2. Zanaflex 2 mg p.o. q. 8 hours p.r.n. pain. 3. MiraLAX 17 g p.o. daily p.r.n. constipation. 4. Oxycodone IR 5 mg p.o. q. 8 hours p.r.n. 5. Zofran 4 mg p.o. q. 4 hours p.r.n. nausea, vomiting. 6. Omeprazole 40 mg p.o. daily. 7. Ativan 1 mg p.o. t.i.d. p.r.n. anxiety. 8. Lasix 40 mg p.o. daily. 9. Flonase nasal spray 2 puffs at bedtime p.r.n. 10. Fenofibrate 145 mg p.o. at bedtime. 11. Cardizem 120 mg p.o. daily. 12. Aspirin 81 mg p.o. daily. 13. Eliquis 2.5 mg p.o. b.i.d. 14. DuoNebs q. 4 hours p.r.n. wheezing, shortness of breath. 15. Levaquin 500 mg p.o. daily with last dose 11-20-2018 16. Quinine sulfate 324 mg p.o. at bedtime. DISPOSITION: She is being discharged in stable condition with family members in transfer to rehab by POV. TIME SPENT: This is a greater than 30 minute discharge. ADDENDUM: THE PT WAS UNABLE TO DISCHARGE TO REHAB ON THE DUE TO BED AVAILABILITY. THANKFULLY A BED IS AVAILABLE TODAY, 11/19/2018. Dictated by YASH Wu for Carlyle Cantu MD cc: YASH Wu MD [facility]
[2018-11-18] MEDS: ZANAFLEX PO PRN (13:17)
[2018-11-18] MEDS: MEVACOR PO SCH (16:16)
[2018-11-18] MEDS: TRICOR PO SCH (20:09)
[2018-11-18] MEDS: QUININE SULFATE PO SCH (20:09)
[2018-11-18] MEDS: MIRALAX PO PRN (20:21)
[2018-11-19] MEDS: ATIVAN PO PRN ×2 (03:23→13:41)
[2018-11-19] MEDS: OXY IR PO PRN ×2 (03:23→13:40)
[2018-11-19] MEDS: CARDIZEM PO SCH ×3 (03:23→13:56)
--- NOTE | 2018-11-19 03:45 | PROGRESS NOTE ---
DATE: 11/18/2018 SUBJECTIVE: Patient notes that she is feeling better. Still weak, still having difficulty getting out of bed. Cough has improved. No fevers or chills. OBJECTIVE: Vital Signs: Reviewed. Temperature 97.7 degrees, pulse 86, BP 117/58. General: Patient is awake, alert. She is in no respiratory distress. HEENT: Normocephalic. Neck: Supple. Cardiovascular: Regular rate. Chest: Decreased but equal breath sounds. No current crackles. No wheezing. Abdomen: Soft, nondistended. Extremities: Moves all extremities. ASSESSMENT: 1. Atrial fibrillation with rapid ventricular rate, currently rate controlled. 2. Congestive heart failure. 3. Left lower lobe pneumonia. PLAN: Continue medications for patient's chronic hypertension. Continue Levaquin and Lasix. Hopefully, can transition to rehab in the morning, if there is a bed. cc: Carlyle Cantu MD
[2018-11-19] MEDS: PRILOSEC PO SCH (06:15)
[2018-11-19] MEDS: ELIQUIS PO SCH (08:03)
[2018-11-19] MEDS: LASIX PO SCH (08:03)
[2018-11-19] MEDS: LEVAQUIN PO SCH (08:03)
[2018-11-19] MEDS: XOPENEX NEB INH SCH ×2 (09:04→15:05)
[2018-11-19] MEDS: ATROVENT NEB INH SCH ×2 (09:04→15:05)
[2018-11-19 11:45] VITALS: BP 131/71
[2018-11-19] MEDS ORDERED: ZOFRAN ODT PO PRN (12:14)
--- NOTE | 2018-11-20 05:36 | DISCHARGE SUMMARY ---
ADMISSION DATE: 11/13/2018 DISCHARGE DATE: 11/19/2018 ADDENDUM: Patient seen and examined by myself. Full note dictated and discussed with nurse practitioner. Patient presented to the hospital, treated for atrial fibrillation with RVR and congestive heart failure with diastolic dysfunction. She is known to have hypertension, pulmonary hypertension. She was treated initially with left lower lobe pneumonia with Levaquin. Her Lasix improved her CHF symptoms. On discharge, medically she is improving. Physically, she is still very weak and having difficulty getting out of bed. Therefore, we will transition her to rehab. cc: Carlyle Cantu MD
== END 2018-11-19 15:47 | DRG 291 ==
LOC: P.ED 07:56 → P.MEDSURG 07:57 → SUATTDRO 07:57 → P.ICU 17:40 → P.MEDSURG 11-15 23:26
PROVIDERS: ATTEND Family Medicine

== ENCOUNTER 2019-06-17 10:41 | Inpatient (IN) ==
[2019-06-17] MEDS ORDERED: ASPIRIN PO ONE (10:52)
[2019-06-17] MEDS ORDERED: LASIX IV ONE (10:59)
[2019-06-17] MEDS ORDERED: NITROGLYCERIN TOP ONE (10:59)
[2019-06-17 11:34] LABS: BASO# 0.02 X1000 (0.0-0.2); BASO% 0.3 % (0.0-0.8); EOS# 0.09 X1000 (0.0-0.7); EOS% 1.4 % (0.0-10.0); HEMATOCRIT 30.7 % (37.0-47.0); HEMOGLOBIN 9.6 g/dL (12.0-16.0); IMM GRAN# 0.09 X1000 (0.0-0.04); IMM GRAN% 1.4 % (0.0-0.5); LYMPH# 0.94 X1000 (1.2-3.4); MCH 33.3 PG (27-31); MCHC 31.3 g/dL (33-37); MCV 106.6 FL (81-99); MONO% 9.6 % (1.7-9.3); NEUT# 4.51 X1000 (1.4-6.5); NEUT% 72.3 % (42.2-75.2); PLT 365 X1000 (130-400); RBC 2.88 XMIL (4.2-5.4); RDW 18.7 % (11.5-14.5); WBC 6.25 X1000 (4.8-10.8)
--- NOTE | 2019-06-17 11:44 | Diag Imaging Result Doc PS360 ---
EXAM: CHEST-2 VIEWS - 06/17/2019 HISTORY: sob chf copd TECHNIQUE: Chest two views COMPARISON: 11/15/2018 portable chest FINDINGS: Heart size appears upper normal. There is apparent calcified mitral valve annulus noted. There are apparent COPD changes. There is mild prominence of interstitial markings. There is infiltrate at the right lower lobe. There are small to medium bilateral pleural effusions. IMPRESSION: Apparent COPD changes. Mild interstitial marking prominence, infiltrate at right lower lobe, and small to medium bilateral pleural effusions. These findings suggest pulmonary edema/congestive heart failure, with possible right lower lobe pneumonia. Electronically signed by Tai Marquez 06/17/2019 11:41 AM
[2019-06-17 11:51] LABS: ALBUMIN 3.6 g/dL (3.5-5.0); CALCIUM 8.5 mg/dL (8.8-10.2); CREATININE 1.1 mg/dL (0.5-0.9); POTASSIUM 4.8 mmol/L (3.5-5.1); TOTAL BILIRUBIN 0.3 mg/dL (0.20-1.00); TOTAL PROTEIN 5.6 g/dL (6.3-8.3)
[2019-06-17 11:56] LABS: INR 1.3; PROTIME 16.9 Seconds (11.0-16.0)
[2019-06-17 11:57] LABS: PTT 39.9 Seconds (22.3-41.8)
[2019-06-17 12:11] LABS: BE 0.8 mmoll (-3.0-3.0); HCO3-(ACT) 25.4 mmoll (20.0-26.0); METHB 1.2 % (0.0-1.5); O2(CT) 17.1 mL/dL (15.0-23.0); O2HB 92.7 % (95.0-99.0); PCO2(98.6) 39 mmHg (35-45); PO2(98.6) 68 mmHg (60-100); SAO2 95.6 % (95.0-100.0); THB 13.1 g/dL (11.5-17.4); pH(98.6) 7.42 (7.35-7.45)
[2019-06-17 12:13] LABS: ALLEN TEST YES; MODALITY ROOM AIR
--- NOTE | 2019-06-17 12:26 | EKG Report ---
Test Performed on : 06/17/2019 10:59:37 AM Test Reason : sob chf Blood Pressure : / mmHG Vent. Rate : 101 BPM Atrial Rate : 312 BPM P-R Int : 000 ms QRS Dur : 080 ms QT Int : 322 ms P-R-T Axes : 000 009 -08 degrees QTc Int : 417 ms Atrial fibrillation. with rapid ventricular response. Anteroseptal infarct (cited on or before 25-SEP-2017) Abnormal ECG When compared with ECG of 13-NOV-2018 17:12, Questionable change in initial forces of Anterior leads ST no longer depressed in Anterolateral leads Unconfirmed Result
[2019-06-17] MEDS ORDERED: TYLENOL PO PRN (13:08)
[2019-06-17] MEDS ORDERED: ZOFRAN IV PRN (13:08)
[2019-06-17] MEDS ORDERED: FLONASE NAS PRN (13:10)
--- NOTE | 2019-06-17 13:10 | PROVIDER DOCUMENTATION ---
This chart was entered by Silvia Bauman Scribe, acting as scribe for Vladimir Posadas MD. HPI-Respiratory General - General Chief Complaint: Shortness of Breath Stated Complaint: SOB Time Seen by Provider: 06/17/19 10:52 Source: patient, family Allergies/Adverse Reactions: Patient Allergies Allergy/AdvReac Type Severity Reaction Status Date / Time diphenhydramine HCl * Allergy Unknown Verified 06/17/19 11:02 [From Benadryl] midazolam HCl * [From Versed] Allergy ANAPHYLAXIS Verified 06/17/19 11:02 Penicillins Allergy ANAPHYLAXIS Verified 06/17/19 11:02 promethazine HCl * Allergy ANAPHYLAXIS Verified 06/17/19 11:02 [From Phenergan] Home Medications: Home Medication List Medication Instructions Recorded Confirmed Last Taken Type Fenofibrate 160 mg PO HS 05/29/14 06/17/19 02/10/18 17:30 History Lisinopril 20 mg PO QHS 05/29/14 06/17/19 02/09/18 History Omeprazole 40 mg PO DAILY 05/29/14 06/17/19 02/11/18 04:30 History Diltiazem HCl [Cardizem] 120 mg PO DAILY 10/09/16 06/17/19 02/11/18 04:30 History Fluticasone 50 Mcg Nasal Cameron 2 puff INH QHS PRN 10/09/16 06/17/19 02/11/18 04:30 History [Flonase] Furosemide [Lasix] 20 mg PO DAILY 04/16/17 06/17/19 02/10/18 14:00 History Potassium Chloride [Klor-Con 10] 10 meq PO DAILY 02/05/18 06/17/19 02/11/18 04:30 History Apixaban [Eliquis] 2.5 mg PO DAILY 11/13/18 06/17/19 Unknown History Cetirizine [Zyrtec] 1 tab PO DAILY 06/10/19 06/17/19 Unknown History Citalopram Hydrobromide [Celexa] 1 tab PO DAILY 06/10/19 06/17/19 Unknown History Doxycycline 1 cap PO DAILY 06/10/19 06/17/19 Unknown History Lorazepam 0.5 mg PO TID PRN 06/10/19 06/17/19 Unknown History Oxycodone HCl/Acetaminophen 1 tab PO Q8H PRN 06/10/19 06/17/19 Unknown History [Percocet 5-325 mg Tablet] Oxycodone HCl/Acetaminophen 1 tab PO Q8H PRN 06/10/19 06/17/19 Unknown History [Percocet 7.5-325 mg Tablet] Sodium Chloride [Preston-128] 1 dose OPHTHALMIC (EYE) QHS 06/10/19 06/17/19 Unknown History Docusate Sodium [Stool Softener] 50 mg PO DAILY 06/17/19 06/17/19 Unknown History Valacyclovir [Valtrex] 500 mg PO DAILY 06/17/19 06/17/19 Unknown History - History of Present Illness-Resp Nature of Presenting Problem: 88 yowf presents to the ed with family for worsening sob. pt has hx of copd and chf and has been seen by home health yesterday and pmd/pain clinic today. pt on exam is nontoxic in appearance and in no obvious distress. pt is speaking in complete sentences Quality of Pain: reports: none Severity in ED: reports: mild Onset/Duration: reports: gradual Timing: reports: still present, getting worse Cough Quality/Degree: reports: mild, dry cough Episode Frequency: chronic episodes Current Respiratory Medication Therapy: Initiated see nurses note Modifying Factors: improves with: sitting upright. worse with: exertion, lying down Associated Symptoms: reports: cough, shortness of breath. denies: chest pain/soreness, heart racing, lightheadedness, sweaty, wheezing Similar Symptoms Previously?: Yes (hx of copd and chf) Recently seen or treated by another doctor?: Yes (pmd/pain clinic) Review of Systems - Adult - REVIEW OF SYSTEMS - ADULT Constitutional: denies: chills, fever Eyes: reports: no symptoms reported Ears, Nose, Mouth & Throat: reports: no symptoms reported Cardiovascular: denies: chest pain, palpitations Respiratory: reports: see HPI, cough, dyspnea on exertion, shortness of breath. denies: wheezing Gastrointestinal: reports: no symptoms reported Genitourinary: reports: no symptoms reported Musculoskeletal: denies: back pain, neck pain Integumentary: reports: no symptoms reported Neurological: reports: no symptoms reported Psychiatric: reports: no symptoms reported Endocrine: reports: no symptoms reported Hematologic/Lymphatic: reports: see HPI, easy bruising Allergic/Immunologic: reports: no symptoms reported All Other Systems: Reviewed and Negative Past History - Adult - PAST MEDICAL HISTORY-ADULT Review of Records: reports: Old Records Reviewed, Nursing Assessment Review, Medications Reviewed, Social history reviewed & non-contributory. Major Childhood Illnesses: reports: denies history Cardiovascular: reports: A-Fib, CHF, HTN, hyperlipidemia, [place] Respiratory: reports: asthma Gastrointestinal: reports: denies history Obstetrical/Gynecological: reports: denies history Genitourinary: reports: denies history Musculoskeletal: reports: arthritis, chronic pain (pain pump), intervertebral disc disease Neurological: reports: denies history Psychiatric: reports: denies history Endocrine/Immune: reports: denies history Other Conditions: reports: denies history - PRIOR SURGERIES/PROCEDURES Surgical/Procedure History: reports: cholecystectomy, hysterectomy, orthopedic (extremity) (left shoulder replacement 09/2015), back/neck (back sx), other (nose sx, pain pump for chronic low back pain) - PRIOR HOSPITALIZATIONS Prior Hospitalizations: reports: for other non-related - IMMUNIZATION STATUS Childhood Immunizations: See Nurse Assessment Flu Vaccine: See Nurse Assessment - FAMILY HISTORY Family History: reviewed, not pertinent - SOCIAL HISTORY Smoking: denies Substance Use: denies Alcohol Use Frequency: never Living Situation: family Physical Exam-General - PHYSICAL EXAM-ADULT Initial Vital Signs Reviewed: Yes - CONSTITUTIONAL General Appearance: appears well, alert, mild distress - EYES Eyes: PERRL/EOMI, pink conjunctivae - HEAD, EARS, NOSE, MOUTH & THROAT HENMT: moist mucous membranes, normal ENT inspection - NECK Neck: non-tender, full range of motion, supple, normal inspection - RESPIRATORY Respiratory: chest non-tender, lungs clear, normal breath sounds, no pleuratic chest pain, no respiratory distress, no accessory muscle use - CARDIOVASCULAR Cardiovascular: normal peripheral pulses, irregularly irregular. negative: gallop/S3 - CHEST (BREASTS) Chest/Breast: deferred - GASTROINTESTINAL (ABDOMEN) Abdominal Exam: normal bowel sounds, non tender, soft - GENITOURINARY Female Genitalia/Pelvic Exam: deferred Rectal Exam: deferred Hemoccult Exam: deferred - LYMPHATIC Lymphatic: no adenopathy - MUSCULOSKELETAL Back Exam: normal inspection, no CVA tenderness, no vertebral tenderness Extremity: normal range of motion, non-tender, normal gait, erythema (BUE and BLE), swelling (BLE) - SKIN Integumentary: normal turgor, warm/dry, erythema (BUE BLE), zoster-like rash (rt face being tx) - NEUROLOGIC Neurologic: grossly normal - PSYCHIATRIC Psych/Mental Status: normal mood/affect, normal thought content, normal thought process, oriented x 3 Progress - PLAN OF CARE/RESULTS Progress/Plan/Lab Results: Vital Signs - 8 hr 06/17/19 10:48 Temperature 98.7 F Pulse Rate 94 H Respiratory Rate 18 Blood Pressure 188/75 O2 Sat by Pulse Oximetry 94 L Laboratory Results - last 24 hr 06/17/19 06/17/19 06/17/19 11:27 11:27 11:27 WBC 6.25 RBC 2.88 L Hgb 9.6 L Hct 30.7 L MCV 106.6 H MCH 33.3 H MCHC 31.3 L RDW Std Deviation 18.7 H Plt Count 365 MPV 8.0 Immature Gran % (Auto) 1.4 H Neut % (Auto) 72.3 Lymph % (Auto) 15.0 L [place] % (Auto) 9.6 H Eos % (Auto) 1.4 Baso % (Auto) 0.3 Immature Gran # (Auto) 0.09 H Neut # (Auto) 4.51 Lymph # (Auto) 0.94 L [place] # (Auto) 0.60 H Eos # (Auto) 0.09 Baso # (Auto) 0.02 PT INR PTT (Actin FS) Sample Site pH pCO2 pO2 HCO3 Base Excess Oxyhemoglobin ABG O2 Sat (Calculated) ABG O2 Saturation ABG Carboxyhemoglobin ABG Methemoglobin Song Test A-a O2 Difference Total Hemoglobin Lactate Blood Gas Modality FiO2 % Sodium 136 Potassium 4.8 Chloride 101 Carbon Dioxide 24 L Anion Gap 11 BUN 18 Creatinine 1.1 H Estimated GFR/1.73 m2 47 BUN/Creatinine Ratio 16 Glucose 116 H Calculated Osmolality 275 Calcium 8.5 L Magnesium Total Bilirubin 0.30 AST 15 ALT 8 L Alkaline Phosphatase 37 Creatine Kinase 26 Troponin T High Sens Srx-R-Nnwlgheikgh Pept 5121 H Total Protein 5.6 L Albumin 3.6 Globulin 2.0 Albumin/Globulin Ratio 2.0 Plasma Lactate 06/17/19 06/17/19 06/17/19 11:27 11:27 11:27 WBC RBC Hgb Hct MCV MCH MCHC RDW Std Deviation Plt Count MPV Immature Gran % (Auto) Neut % (Auto) Lymph % (Auto) [place] % (Auto) Eos % (Auto) Baso % (Auto) Immature Gran # (Auto) Neut # (Auto) Lymph # (Auto) [place] # (Auto) Eos # (Auto) Baso # (Auto) PT 16.9 H INR 1.30 PTT (Actin FS) 39.9 Sample Site pH pCO2 pO2 HCO3 Base Excess Oxyhemoglobin ABG O2 Sat (Calculated) ABG O2 Saturation ABG Carboxyhemoglobin ABG Methemoglobin Song Test A-a O2 Difference Total Hemoglobin Lactate Blood Gas Modality FiO2 % Sodium Potassium Chloride Carbon Dioxide Anion Gap BUN Creatinine Estimated GFR/1.73 m2 BUN/Creatinine Ratio Glucose Calculated Osmolality Calcium Magnesium 1.8 Total Bilirubin AST ALT Alkaline Phosphatase Creatine Kinase Troponin T High Sens 35 H Jwr-[id number]-Lyzuqnpsexb Pept Total Protein Albumin Globulin Albumin/Globulin Ratio Plasma Lactate 06/17/19 06/17/19 11:47 11:50 WBC RBC Hgb Hct MCV MCH MCHC RDW Std Deviation Plt Count MPV Immature Gran % (Auto) Neut % (Auto) Lymph % (Auto) [place] % (Auto) Eos % (Auto) Baso % (Auto) Immature Gran # (Auto) Neut # (Auto) Lymph # (Auto) [place] # (Auto) Eos # (Auto) Baso # (Auto) PT INR PTT (Actin FS) Sample Site R RADIAL pH 7.42 pCO2 39 pO2 68 HCO3 25.4 Base Excess 0.8 Oxyhemoglobin 92.7 L ABG O2 Sat (Calculated) 17.1 ABG O2 Saturation 95.6 ABG Carboxyhemoglobin 1.90 ABG Methemoglobin 1.2 Song Test YES A-a O2 Difference 33.0 Total Hemoglobin 13.1 Lactate 0.80 Blood Gas Modality ROOM AIR FiO2 % 21.0 Sodium Potassium Chloride Carbon Dioxide Anion Gap BUN Creatinine Estimated GFR/1.73 m2 BUN/Creatinine Ratio Glucose Calculated Osmolality Calcium Magnesium Total Bilirubin AST ALT Alkaline Phosphatase Creatine Kinase Troponin T High Sens Opp-[id number]-Pgtdsrkdbsz Pept Total Protein Albumin Globulin Albumin/Globulin Ratio Plasma Lactate 0.9 Orders Category Date Time Status Cardiac Monitoring DIRECTED Care 06/17/19 10:53 Active Oxygen Therapy- ED Nursing DIRECTED Care 06/17/19 10:53 Active Saline Loc NOW Care 06/17/19 10:53 Active CHEST-2 VIEWS [RAD] Stat Exams 06/17/19 10:53 Completed ABG [RESP] Routine Lab 06/17/19 11:47 Results BLOOD CULTURE [BLDCUL] Stat Lab 06/17/19 11:05 Ordered CBC WITH ELECTRONIC DIFF [HEME] Stat Lab 06/17/19 11:27 Completed CK PROFILE [SP CHEM] Stat Lab 06/17/19 11:27 Completed COMPREHENSIVE METABOLIC PANEL [CHEM] Stat Lab 06/17/19 11:27 Completed LACTATE, PLASMA [CHEM] Stat Lab 06/17/19 11:50 Completed MAGNESIUM [CHEM] Stat Lab 06/17/19 11:27 Completed PRO B-NATRIURETIC PEPTIDE Stat Lab 06/17/19 11:27 Completed PROTIME WITH INR [COAG] Stat Lab 06/17/19 11:27 Completed PTT [COAG] Stat Lab 06/17/19 11:27 Completed TROPONIN T HIGH SENSITIVITY Stat Lab 06/17/19 11:27 Completed Aspirin Med 06/17/19 10:52 Discontinued 325 mg PO NOW ONE Furosemide [Lasix] Med 06/17/19 10:59 Discontinued 20 mg IV NOW ONE Nitroglycerin Med 06/17/19 10:59 Discontinued 0.5 inch TOP NOW ONE CP/SOB/Palp >45 yrs of Age Stat Oth 06/17/19 10:52 Ordered EKG [EKG] Stat Ther 06/17/19 10:53 Draft Result Diagrams: 06/17/19 11:27 06/17/19 11:27 - EKG 1 Time of EKG reading by physician:: 10:59 EKG Read and Signed by:: Vladimir Posadas EKG Interpretation (*Must complete 3 of following elements*): Abnormal Rate: 101 Rhythm: afib with rvr [place]: normal QRS: normal [place] Interval: normal ST Wave: normal Comments: anteroseptal infarct, age undetermined - XRAY 1 XRAY: Bilateral XRAY Study: Chest Impression: See EMR Report (EXAM: CHEST-2 VIEWS - 06/17/2019 HISTORY: sob chf copd TECHNIQUE: Chest two views COMPARISON: 11/15/2018 portable chest FINDINGS: Heart size appears upper normal. There is apparent calcified mitral valve annulus noted. There are apparent COPD changes. There is mild prominence o f interstitial markings. There is infiltrate at the right lower lobe. There are small to medium bilateral pleural effusions. IMPRESSION: Apparent COPD changes. Mild interstitial marking prominence, infiltrate at right lower lobe, and small to medium bilateral pleural effusions. These findings suggest pulmonary edema/congestive heart failure, with possible right lower lobe pneumonia. Electronically signed by Tai Marquez 06/17/2019 11:41 AM 06/17/19 1141 Interpreting Physician: Tai Marquez MD Dictated Date/Time: 06/17/19 1136 cc: Vladimir Posadas MD; Christiana Maria MD) - CONSULTS/PCP/HOSPITALIST Notification #1 *Consult/PCP/Hospitalist*: MAME Time Discussed: 12:44 Consult Disposition: Admit Departure - Departure Date of Disposition Decision: 06/17/19 Time of Disposition Decision: 12:44 DIAGNOSIS: SOB (shortness of breath) CHF exacerbation Qualifiers: Heart failure type: unspecified Qualified Code(s): I50.9 - Heart failure, unspecified Fluid overload Qualifiers: Hypervolemia type: unspecified Qualified Code(s): E87.70 - Fluid overload, unspecified COPD (chronic obstructive pulmonary disease) Qualifiers: COPD type: emphysema Disposition: ADMITTED INPATIENT 09 Certified Medical Emergency: Emergent Condition: Stable Referrals and Follow-Ups: Christiana Maria MD [Primary Care Provider] - - Critical Care Note This patient required my direct & personal management of CC.: No Attestation - Physician/ MELLY Attestation Patient care was provided by Advanced Practice Provider:: No The physician spent face to face time with patient:: Yes Advanced Practice Provider documentation review:: Supervising physician onsite and consulted in the evaluation and care of this patient. The physician did have a face to face encounter with the patient. This chart was documented by the indicated scribe, (Silvia Bauman Scribe) and accurately reflects the services I performed and decisions made by me, Vladimir Posadas MD, as attested by the provider's signature.
[2019-06-17] MEDS: LASIX IV SCH (13:51)
[2019-06-17 16:09] LABS: BLOOD TYPE ARTERIAL
[2019-06-17 16:10] LABS: SAMPLE BLOOD
[2019-06-17] MEDS: PERCOCET-5 PO PRN (16:15)
[2019-06-17] MEDS: ATIVAN PO PRN (16:15)
[2019-06-17 18:01] LABS: URINE SOURCE CATH
[2019-06-17 18:09] LABS: BILIRUBIN URINE NEGATIVE (NEGATIVE); BLOOD URINE NEGATIVE (NEGATIVE); COLOR STRAW; GLUCOSE URINE NEGATIVE (NEGATIVE); KETONE URINE NEGATIVE (NEGATIVE); LEUKOCYTES URINE MODERATE (NEGATIVE); NITRITE URINE NEGATIVE (NEGATIVE); PROTEIN URINE NEGATIVE (NEGATIVE); TURBIDITY URINE CLEAR (CLEAR); UROBILINOGEN URINE NORMAL (NORMAL)
[2019-06-17 18:10] LABS: UR EPITHELIAL CELLS <10 /HPF (<10); URINE BACTERIA NEGATIVE /HPF; URINE RBC <10 /HPF (<10); URINE WBC TNTC /HPF (<10)
[2019-06-17] MEDS ORDERED: ROCEPHIN 1 GM in NS 50 ML IV SCH (18:15)
[2019-06-17] MEDS ORDERED: LEVAQUIN 500 MG/D5W 500 MG/100 ML IVPB IV SCH (18:15)
[2019-06-17 18:21] LABS: SP GRAVITY URINE 1.006
[2019-06-17 18:25] LABS: URINE CASTS NONE SEEN; URINE CRYSTALS NONE SEEN; URINE SMALL ROUND CELLS NONE SEEN; URINE YEAST NONE SEEN
[2019-06-17] MEDS: PRINIVIL PO SCH (20:36)
[2019-06-17] MEDS ORDERED: TRICOR PO SCH (21:00)
--- NOTE | 2019-06-17 22:49 | HISTORY AND PHYSICAL ---
PRIMARY CARE PHYSICIAN: Christiana Maria MD CHIEF COMPLAINT: Shortness of breath. HISTORY OF PRESENT ILLNESS: Ms. Watson is an 88-year-old female with past medical history of atrial fibrillation on Eliquis and Cardizem, systolic heart failure, hypertension, hyperlipidemia, coronary artery disease with TX, chronic pain syndrome, chronic arthritis, history of PE and DVTs and GERD. She presents today to the ER with shortness of breath for the past 3 days. The patient also is complaining of dizziness, weakness, bilateral leg edema, decreased urination and loose stools. The patient states she has noticed she was having these approximately 3 nights ago. She was having difficulty sleeping at night. She was taking her incentive spirometer; however, when she noticed this was worse in the morning, she did decide to come to the ER at that time. She denies any fever, chills, flu-like symptoms, congestion, cough, neck pain or stiffness, excessive thirst, or excessive urination, chest pain, palpitations, nausea or vomiting, melena, hematemesis, constipation, dysuria, hematuria, joint stiffness, vertigo, syncope, or any other pertinent symptoms at this time. REVIEW OF SYSTEMS: A 10-point review of systems has been obtained, and all are negative except for those stated above in HPI. PAST MEDICAL HISTORY: 1. Atrial fibrillation on Eliquis and Cardizem. 2. Systolic heart failure with chronic lower extremity edema on Lasix. 3. Hypertension. 4. Hyperlipidemia. 5. Coronary artery disease with TX around 3 or 4 years ago. 6. Chronic pain syndrome to the lower back secondary to vertebral disk disease, currently with a pain pump that is morphine. 7. Chronic arthritis. 8. Pulmonary emboli in 2013. 9. 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 10. GERD. PAST SURGICAL HISTORY: 1. Cholecystectomy. 2. Hysterectomy. 3. Left shoulder replacement in 2016. 4. Right shoulder replacement in 2018. 5. Bilateral cataracts. 6. Pain pump with morphine placed. SOCIAL HISTORY: The patient denies tobacco, alcohol, or illicit drug use. She uses a walker to get around. She lives at home with her daughter. PATIENT PHARMACY: [facility] in [place]. FAMILY HISTORY: The patient's mother had a stroke and had high blood pressure. Father had diabetes type 2 and an TX. ALLERGIES: Versed causes agitation. Penicillin causes hives and swelling. Benadryl causes agitation. Phenergan causes agitation. HOME MEDICATIONS: 1. Preston-128 drops 1 dose ophthalmic at bedtime. 2. Lasix 20 mg p.o. daily. 3. Oxycodone/acetaminophen 5/325 one tablet p.o. q.8 hours. 4. Eliquis 2.5 mg p.o. daily. 5. Zyrtec 1 tablet p.o. daily. 6. Celexa 1 tablet p.o. daily. 7. Diltiazem 120 mg p.o. daily. 8. Docusate sodium 50 mg p.o. daily. 9. Doxycycline 1 tablet p.o. daily. 10. Fenofibrate 160 mg p.o. at bedtime. 11. Flonase 2 puffs inhaled at bedtime. 12. Lisinopril 20 mg p.o. at bedtime. 13. Lorazepam 0.5 mg t.i.d. 14. Omeprazole 40 mg p.o. daily. 15. Potassium chloride 10 mEq p.o. daily. 16. Valtrex 500 mg p.o. daily. PHYSICAL EXAMINATION: VITAL SIGNS: Temperature 98.2 degrees, pulse rate 88, respiratory rate 18, blood pressure 171/94, O2 saturation 95% on room air. GENERAL: This is an 88-year-old female who is well nourished and well developed. She is in no acute distress. HEENT: Atraumatic, normocephalic. Pupils equal, round, react to light. Mucous membranes are moist. NECK: Supple. No lymphadenopathy. Trachea is midline. No JVD. No thyromegaly. No bruits. CARDIOVASCULAR: Irregular rate and rhythm. No murmurs, gallops, or rubs appreciated. RESPIRATORY: Lung sounds are clear with equal chest excursion. Respirations are nonlabored. No accessory muscle usage. GASTROINTESTINAL: Abdomen is soft, nontender, nondistended. Bowel sounds present x4. GENITOURINARY: No CV tenderness noted. Patient is voiding without difficulty. NEUROLOGIC: The patient is awake, alert, oriented, able to follow all commands appropriately. No deficits noted. MUSCULOSKELETAL: Full distal strength noted. No abnormalities, no deformities. EXTREMITIES: No clubbing, no cyanosis. There is bilateral lower extremity edema. DP, PT pulses are present and palpable. SKIN: Warm, dry, intact. No rashes. No bruises. No diaphoresis. LABS AND DIAGNOSTICS: White blood cell count 6.25, hemoglobin 9.6, hematocrit 30.7, platelet count 365,000. Sodium 136, potassium 4.8, BUN is 18, creatinine 1.1, glucose 116, magnesium 1.8. Troponin 35. ProBNP 5121. Chest x-ray shows apparent COPD changes, mild interstitial marking prominence, infiltrate at the right lower lobe and a small to medium bilateral pleural effusion. These findings suggest pulmonary edema, congestive heart failure with possible right lower lobe pneumonia. ASSESSMENT: 1. Congestive heart failure with acute exacerbation. 2. Anemia. 3. Atrial fibrillation. 4. Hypertension. 5. Coronary artery disease. 6. Chronic pain. 7. Hyperlipidemia. 8. Chronic arthritis. 9. Gastroesophageal reflux disease. PLAN: We have admitted this patient to the medical floor. We are going to start this patient on IV Lasix. She was given a dose in the ER. We are going to do 40 mg IV q.12 x3 doses. We are going to resume her home medications. We will start her on connie cleaner. We will repeat a chest x-ray in the morning. We will do vital signs routine. Strict ins and outs, daily weights. She can be up with assist. She can have a regular healthy heart diet. We will repeat labs for in the morning. We have ordered a urine on the patient with reflex culture. We will provide supplemental O2 if needed. All other further treatment pending hospital course and laboratory data Dictated by YASH Jacobo for Carlyle Cantu MD cc: MD Christiana Shah MD
[2019-06-18] MEDS: PERCOCET-5 PO PRN ×3 (01:54→18:34)
[2019-06-18] MEDS: LASIX IV SCH ×2 (01:54→13:07)
--- NOTE | 2019-06-18 04:34 | HISTORY AND PHYSICAL ---
ADDENDUM: The patient presented to the hospital with increased work of breathing when she is lying in the bed. Also having increased edema in her lower extremities. States that she went to her regular doctor's office today and they encouraged her to come to the hospital. She states she has had a history of CHF although her most recent echo on chart demonstrates an EF of 70%. We are going to admit her to the hospital, place her on IV fluids. We will also start her on antibiotics as she does have an infiltrate in the right lower lobe. Continue to follow her effusions and lower extremity edema. Follow her CHF. cc: Carlyle Cantu MD
[2019-06-18 05:51] LABS: HEMATOCRIT 31.3 % (37.0-47.0); MCH 33.4 PG (27-31); MCHC 31.9 g/dL (33-37); MCV 104.7 FL (81-99); MPV 8.2 FL (7.4-10.4); RBC 2.99 XMIL (4.2-5.4); RDW 18.8 % (11.5-14.5); WBC 6.18 X1000 (4.8-10.8)
[2019-06-18 06:01] LABS: ALBUMIN 3.3 g/dL (3.5-5.0); CALCIUM 8.8 mg/dL (8.8-10.2); CREATININE 1.2 mg/dL (0.5-0.9); POTASSIUM 4.2 mmol/L (3.5-5.1); TOTAL BILIRUBIN 0.3 mg/dL (0.20-1.00); TOTAL PROTEIN 5.9 g/dL (6.3-8.3)
[2019-06-18] MEDS: PRILOSEC PO SCH (06:04)
--- NOTE | 2019-06-18 07:32 | Diag Imaging Result Doc PS360 ---
EXAM: CHEST-PORTABLE - 06/18/2019 HISTORY: ACS/AMI TECHNIQUE: Portable chest COMPARISON: 06/17/2019 chest two views FINDINGS: Heart size appears upper normal stable. There are small bilateral pleural effusions which appear to decreased. There is decreased prominence of lower lung interstitial markings compared to prior. There has been apparent decrease in infiltrate at the right base. There is no evidence of pneumothorax. IMPRESSION: Decrease in pulmonary edema plus or minus right basilar pneumonia compared to prior. Electronically signed by Tai Marquez 06/18/2019 7:30 AM
[2019-06-18] MEDS: CELEXA PO SCH (08:51)
[2019-06-18] MEDS: COLACE PO SCH (08:51)
[2019-06-18] MEDS: DOXYCYCLINE PO SCH (08:51)
[2019-06-18] MEDS: KLOR-CON PO SCH (08:52)
[2019-06-18] MEDS: VALTREX PO SCH (08:52)
[2019-06-18] MEDS: ELIQUIS PO SCH (08:52)
[2019-06-18] MEDS: CARDIZEM CD PO SCH (08:52)
[2019-06-18] MEDS: ZYRTEC PO SCH (08:52)
[2019-06-18] MEDS ORDERED: TRICOR PO SCH (09:13)
[2019-06-18] MEDS: ATIVAN PO PRN ×2 (10:20→18:34)
[2019-06-18] MEDS: QUININE SULFATE PO SCH (10:21)
[2019-06-18] MEDS: PRINIVIL PO SCH (21:07)
--- NOTE | 2019-06-19 03:17 | PROGRESS NOTE ---
DATE: 06/18/2019 SUBJECTIVE: The patient notes that she is starting to feel a little bit better. Still fatigued and tired. Denies any fevers. Denies any GI or issues currently. PHYSICAL EXAMINATION: Vital Signs: Temperature 98 degrees, pulse 100, respiratory 18, BP 100/85. General: Patient is pleasant. She is in no respiratory distress. HEENT: Normocephalic. Neck: Supple. Cardiovascular: Regular rate. Chest: Clear. Abdomen: Soft. Extremities: Moves all extremities. ASSESSMENT: 1. Presumed urinary tract infection. 2. Congestive heart failure with acute exacerbation, stable. 3. Anemia of chronic disease. 4. Known coronary artery disease. 5. Hypertension. 6. Reflux. PLAN: We are going to continue patient in the hospital. Continue antibiotics. Continue physical therapy. Hopefully she can get stronger and be discharged home over the next 1 or 2 days. cc: Carlyle Cantu MD MTDD
[2019-06-19] MEDS: PRILOSEC PO SCH (06:12)
[2019-06-19] MEDS: PERCOCET-5 PO PRN (06:19)
[2019-06-19] MEDS: ATIVAN PO PRN (06:19)
[2019-06-19] MEDS: ZYRTEC PO SCH (09:11)
[2019-06-19] MEDS: CELEXA PO SCH (09:11)
[2019-06-19] MEDS: ELIQUIS PO SCH (09:11)
[2019-06-19] MEDS: CARDIZEM CD PO SCH (09:11)
[2019-06-19] MEDS: COLACE PO SCH (09:11)
[2019-06-19] MEDS: VALTREX PO SCH (09:11)
[2019-06-19] MEDS: KLOR-CON PO SCH (09:11)
[2019-06-19] MEDS: DOXYCYCLINE PO SCH (09:12)
[2019-06-19] MEDS: QUININE SULFATE PO SCH (09:12)
[2019-06-19 11:58] VITALS: BP 154/79
--- NOTE | 2019-06-20 02:23 | DISCHARGE SUMMARY ---
ADMISSION DATE: 06/17/2019 DISCHARGE DATE: 06/19/2019 DISCHARGE DIAGNOSIS: 1. Congestive heart failure exacerbation, resolved. 2. stable. 3. Hypertension. 4. Coronary artery disease. 5. Anemia of chronic disease. 6. Right basilar pneumonia, improved. CONSULTATIONS: None. PROCEDURES: None. BRIEF HOSPITAL COURSE: The patient is a very pleasant 88-year-old female who presented to the emergency department, diagnosed with congestive heart failure exacerbation and right basilar pneumonia. Was placed on Lasix, antibiotics. On discharge, she was much improved. She is feeling better and therefore she will be discharged home. DISPOSITION: Patient will be discharged home. She will continue her home medications without any changes as listed on the HPI dated 06/17/2019 with exception of antibiotics for the next 7 days for her pneumonia. cc: Carlyle Cantu MD [facility]
== END 2019-06-19 13:31 | disposition home health service (06) | DRG 291 ==
LOC: P.ED 10:41 → P.MEDSURG 14:55
PROVIDERS: ADMIT Family Medicine